=== PATIENT | male | born 1960 | race Hispanic/Latino ===

== ENCOUNTER 2016-03-23 17:39 | Emergency (ER) | payer OTHER ==
[~2016-03-23] VITALS: Ht 167.6 cm; Wt 90.9 kg
[~2016-03-23 17:39] MED LIST: IBUP800T28 PO; ONDA8TAB10 PO; OXYC1TAB24 PO
[2016-03-23 17:59] VITALS: BP 119/77; PULSE 46; RESP 10; O2SAT 96
[2016-03-23 18:30] VITALS: BP 112/71; PULSE 82; RESP 18; O2SAT 97
[2016-03-23] MEDS ORDERED: 0.9% Sodium Chloride 1,000 ML IV ONE (18:34)
--- NOTE | 2016-03-23 18:46 | ED.REPORT ---
HPI-Dizziness / Weakness Date of Service Mar 23, 2016 ED Provider: Dr. Albright Pt is a 55 year old male with a hx of vertigo, heart attack 15 years ago and borderline DM presenting to the ED complaining of sudden onset spinning dizziness 1 hour ago. Associated symptoms include nausea, vomiting, chills, fatigue, headache. Denies chest pain, SOB, ringing in the ears. Exacerbated by moving his head. He reports similar previous symptoms. Nursing Notes Stated Complaint: STOMACH PAIN, VOMITTING Chief Complaint: Male Abdominal Pain Nursing Notes Reviewed: Yes Allergies: Coded Allergies: No Known Allergies (Verified , 04/18/03) Scheduled Meclizine (Bonine) 25 Mg Tab.chew 25 MG PO TID Scheduled PRN Ibuprofen (Ibuprofen) 800 Mg Tablet 800 MG PO TID PRN PRN For Pain Ondansetron ODT (Ondansetron ODT) 8 Mg Tab.rapdis 8 MG PO Q4H PRN PRN For Nausea oxyCODONE-Acetaminophen 5-325 mg (oxyCODONE-Acetaminophen 5-325 mg) 1 Each Tablet 1-2 TAB PO TID PRN PRN For Pain General Time Seen by MD: 18:45 Chief Complaint Dizzy Hx Obtained From: Patient Arrived By: Walk-in Onset Occurred: 1 - 4 hours ago Symptom Duration: Since onset Location: : Head Quality: Painful Severity: Current: Mild Severity: Maximum: Moderate Recent Healthcare: No recent doctor visit, No recent hospitalization Similar Sx Previous: Yes Past Medical History Past Medical History Heart Disease Borderline DM Heart disease 15 years ago - seen at [facility] Reports: Hypertension Past Surgical History Cardiac Stents Smoking History Never Smoker Ambulatory Status Independent Review of Systems Constitutional: Reports: Chills, Fatigue Ears / Nose / Throat: Denies: Ear ringing bilateral Respiratory: Denies: Shortness of breath Cardiovascular: Denies: Chest pain GI: Reports: Nausea, Vomiting Neurologic: Reports: Dizziness, Headache Complete sys rev & neg: except as marked. Physical Exam Initial Vital Signs Vital Signs (First) Date Time Temp Pulse Resp B/P Pulse Ox O2 Delivery O2 Flow Rate FiO2 03/23/16 17:59 30.1 46 10 119/77 96 03/23/16 18:30 Room Air Initial VS: Reviewed Neck: Supple, Non-tender, Full range of motion Abdomen / GI: No distention Extremities: Vascular intact, Neuro intact, No swelling, No tenderness Skin: Warm, Dry, No cyanosis Psychiatric: Mood/affect normal, Behavior normal, Normal thought content General/Constitutional: Awake, Alert, No acute distress Head / Eyes: PERRL Nystagmus with fast to the right. No facial droop or asymmetry. Respiratory / Chest: No respiratory distress Cardiovascular: Heart rate NL, Regular rhythm, Heart sounds NL, No gallop, No murmurs, No rubs ENT: Airway patent, Tympanic membs NL Interpretation & Diagnostics Lab Results Interpretation Result Diagram: 03/23/16183103/23/161831 Test 03/23/16 18:32 White Blood Count 11.1th/mm3 (3.8-10.1) Red Blood Count 5.65mil/mm3 (4.40-5.80) Hemoglobin 16.8g/dL (13.8-17.2) Hematocrit 49.9% (41.0-50.0) Mean Corpuscular Volume 88.3fL (81-100) Mean Corpuscular Hemoglobin 29.7pg (27.0-35.0) Mean Corpuscular Hemoglobin Concent 33.7% (32.0-37.0) Red Cell Distribution Width 13.0% (12.3-15.4) Platelet Count 218bil/L (150-400) Neutrophils (%) (Auto) 72.5% (40-74) Lymphocytes (%) (Auto) 18.6% (14-46) Monocytes (%) (Auto) 7.9% (4-12) Eosinophils (%) (Auto) 0.5% (0-5) Basophils (%) (Auto) 0.1% (0-3) Sodium Level 139mEq/L (134-144) Potassium Level 4.1mEq/L (3.5-5.2) Chloride Level 97mEq/L (97-108) Carbon Dioxide Level 27mmol/L (18-29) Blood Urea Nitrogen 19mg/dL (6-24) Creatinine 1.02mg/dL (0.76-1.27) Estimat Glomerular Filtration Rate 81mL/min (>59) Glucose Level 209mg/dL (60-99) Calcium Level 9.4mg/dL (8.5-10.1) Magnesium Level 1.8mg/dL (1.6-2.6) Total Bilirubin 0.7mg/dL (0.0-1.2) Aspartate Amino Transf (AST/SGOT) 24U/L (0-50) Alanine Aminotransferase (ALT/SGPT) 21U/L (0-44) Alkaline Phosphatase 66U/L (25-150) Total Protein 7.6g/dL (6.4-8.4) Albumin 4.4g/dL (3.4-5.0) Lipase 26U/L (13-60) Hold Julien Top Tube Received (Received) ECG Interpretation ECG Interpretation: Old inferior infarct. Nonspecific intraventricular conduction delay. No acute ST segment changes. Rate of 57. Time: 18:12 Interpreted by: ED physician Normal ECG Interpretation: Normal sinus rhythm Re-Eval/Medical Decision Re-Evaluation/Progress : Time of Eval: 21:02 Patient Status: Condition improved Re-Evaluation/Progress Note: Dizziness is currently resolved. Discussed plan for discharge. Pt understands and agrees. Counseled Regarding: Diagnosis, Lab results, Need for follow-up, When/why to return to ED Patient Discharge & Departure Impression: Primary Impression: Vertigo Disposition: Home Discharge Condition All VS Reviewed: Yes Condition: Improved Patient Instructions: Benign Paroxysmal Positional Vertigo (ED) Additional Instructions: Emergency Department evaluation included review, examination, ECG labs. Episode of abrupt onset of severe vertigo is typical for BPPV. May use meclizine 25 mg every 8 hours as needed for vertigo episodes. Apley maneuver as shown on handout may help decrease the left length of time that you experience episodes of vertigo will cause dizziness when you perform them. Continue other previous home medications. Follow-up with primary care next week. Return emergency Department for severe disabling vertigo us and vomiting chest pain or difficulty with speech or weakness on one side of the body. Referrals: Ginger Harding DO (PCP) Micheal Attestation Portions of this note were transcribed by Archana Mcknight. I, Dr. Albright personally performed the history, physical exam and medical decision-making; I reviewed and confirmed the accuracy of the information in the transcribed note. Signed by : Micheal Theodore, 03/23/2015 and 2109. Ginger Harding Donald L MD Mar 23, 2016 18:46 ARCHANA MCKNIGHT Mar 23, 2016 18:58
[2016-03-23] MEDS: Ondansetron 2 mg/mL 2 mL Inj IVPUSH PRN ×2 (18:50→19:43)
[2016-03-23 18:52] LABS: BASOPHILS % (AUTO) 0.1 % (0-3); EOSINOPHILS % (AUTO) 0.5 % (0-5); MONOCYTES % (AUTO) 7.9 % (4-12); Mean Corpuscular Hemoglobin 29.7 pg (27.0-35.0); Mean Corpuscular Volume 88.3 fL (81-100); NEUTROPHILS % (AUTO) 72.5 % (40-74); Platelet Count 218 bil/L (150-400)
[2016-03-23 19:14] LABS: Magnesium 1.8 mg/dL (1.6-2.6)
[2016-03-23] MEDS ORDERED: MECL-114 PO (21:07)
[2016-03-23 21:24] VITALS: BP 139/75; PULSE 78; RESP 18; O2SAT 98
== END 2016-03-23 21:26 | disposition home or self-care (01) ==
LOC: SED 17:39
DX: R42 Dizziness and giddiness (principal); R11.2 Nausea with vomiting, unspecified; R68.83 Chills (without fever); R53.83 Other fatigue; R51 Headache; I10 Essential (primary) hypertension; I25.2 Old myocardial infarction; R73.09 Other abnormal glucose; Z95.818 Presence of other cardiac implants and grafts
CPT/HCPCS: 36415; 80053; 83690; 83735; 85025; 93005; 96361; 96374; 96376; 99285; J2405; J7030

== ENCOUNTER 2016-09-01 05:30 | Day surgery (SDC) | payer OTHER ==
[2016-09-01] VITALS (11 sets, daily range): BP systolic 110–142; BP diastolic 69–92; PULSE 49–66; RESP 9–18; O2SAT 92–100
[~2016-09-01] VITALS: Ht 165.1 cm; Wt 94.3 kg
[~2016-09-01 05:30] MED LIST changes: +AMLO5TAB2 PO; +ATOR20TA PO; +HYG25 PO; -IBUP800T28 PO; +LOSA25TA21 PO; +Lactated Ringer's 1,000 ML IV ONE; +METO25TA99 PO; -ONDA8TAB10 PO; -OXYC1TAB24 PO; +aspirin PO
[2016-09-01] MEDS ORDERED: Dexamethasone 4 mg/mL Inj ONE (05:31)
[2016-09-01] MEDS ORDERED: MeTOProlol 1 mg/mL 5 mL Inj ONE (05:31)
[2016-09-01] MEDS ORDERED: Propofol 10,000 mCg/mL 20 mL Inj ONE (05:31)
[2016-09-01] MEDS ORDERED: Ondansetron 2 mg/mL 2 mL Inj ONE (05:31)
[2016-09-01] MEDS ORDERED: fentaNYL-PF 50 mCg/mL 2 mL Inj ONE (05:31)
[2016-09-01] MEDS ORDERED: CeFAZolin 2 Gm/50 mL D5W IV Premix IV ONE (06:00)
[2016-09-01] MEDS ORDERED: Lactated Ringer's 1,000 ML IV SCH ×2 (06:00→07:31)
--- NOTE | 2016-09-01 07:15 | PCM.HPANE ---
Patient Data Surgeon Admitting Provider: Attending Provider:Ryan Valles MD Primary Care Physician:Ginger Harding DO Other Provider:Varsha Vazquezingham Anesthesia Reason for Visit Right Knee Loose Body Ht/WT & BMI Height (Feet): 5 Height (Inches): 5 Weight (Kilograms): 94.3 Body Mass Index 34.00 Allergies Coded Allergies: No Known Allergies (Verified , 04/18/03) Past Anesthesia History Anesthesia History: Denies:: Anesthesia Reactions Diabetes History Hx Diabetes?: No Type of Diabetes: Diet Controlled MRSA MRSA: No Medications Blood Thinner: Aspirin Hypertension Medication: Yes Home Meds Incl Beta Tee: Yes Date Beta Tee Taken: Aug 31, 2016 Time Beta Tee Taken: 0800 Reported Medications Metoprolol Succinate ER 25 Mg Tab.er.24h25 Mg PO DAILY Ref 0 08/25/16 Losartan Potassium 25 Mg Bcgzqe65 Mg PO DAILY 08/25/16 Chlorthalidone 25 Mg Uiimeg75 Mg PO DAILY #30 TABLET 08/25/16 Atorvastatin (Lipitor)20 Mg Kuahdd09 Mg PO DAILY Ref 0 08/25/16 [aspirin] No Conflict Ahdhe247 Mg PO DAILY 08/25/16 Amlodipine 5 Mg Tablet5 Mg PO DAILY Ref 0 08/25/16 Discontinued Scripts Meclizine (Bonine)25 Mg Tab.chew25 Mg PO TID DIZZINESS #20 TABLET Prov:Alvino Albright MD 03/23/16 Ondansetron ODT 8 Mg Tab.rapdis8 Mg PO Q4H PRN For Nausea #10 TABLET Prov:Tomasz Maddox MD 11/14/15 oxyCODONE-Acetaminophen 5-325 mg 1 Each Tablet1-2 Tab PO TID PRN For Pain #20 TABLET Ref 0 Prov:Tomasz Maddox MD 11/14/15 Ibuprofen 800 Mg Pbulig570 Mg PO TID PRN For Pain #30 TABLET Ref 0 Prov:Tomasz Maddox MD 11/14/15 Last Time Dose Received No meds taken today. All meds taken in am normally History History of ENT Problems?: No HEENT History: Denies:: Abnormal Airway Cataracts Difficult Intubation Dysphagia Glaucoma Hearing Problem Sinus Problem TMJ Denture Type: None Teeth Condition: Within Normal Limits Hx of Heart Problems?: Yes Cardiovascular History: Positive for:: Cardiac Surgery (hx of cardiac cath stent- 2000) Hypertension Denies:: Congestive Heart Failure Edema Heart Murmur Irregular Heartbeat Pacemaker Thrombophlebitis Other History/Comments Greater than 4 mets. No CP Hx of Respiratory Problem?: Yes Respiratory History: Positive for:: Use of C-PAP Machine Denies:: Oxygen Administration Tuberculosis Hx Neurologic Problems?: No Neurological History: Denies:: CVA Multiple Sclerosis Parkinson's Disease Seizures Hx of GI Problems?: Yes Hx of Problems?: No Male Hx: Denies:: Scrotal Mass Skin History: Denies:: History Skin Disorders? Hx Musculoskeletal Problems?: Yes Musculoskeletal History: Positive for:: Musculoskeletal Trauma (right knee loose body current admission problem) Psycho Social History: Denies:: Hx Depression Hx Surgeries?: Yes (appy,) Hx Any Other Health Problems?: Yes Other History: Positive for:: Hospitalization Denies:: Cancer Thyroid Disease History Blood Transfusions: Positive for:: Blood Transfusions Denies:: Blood Transfuse Reaction Hx Diabetes: No Hx Alcohol Use: NoHx Substance Use: No Smoking Status: Never Smoker Have You Smoked inLast 12 mo: No Stop/Bang S-Snoring: Do You Snore Loudly: No T-Tired: feel tired, fatigued: No O-Obsered: Observed not breath: No P-Blood Pressure: treated: Yes B- Body Mass Index > 35 kg/m2: No A- Age over 50: Yes N- Neck Large Circumference: No G- Gender Male: Yes CHALINO Total Score: 3 Risk Assessment Category Category 1A: Patient has history of documented sleep apnea, and HAS NOT received any narcotic, sedative or anesthesia administration during this stay. Category 1B: Patient has history of documented sleep apnea, and HAS received any narcotic , sedative or anesthesia administration during this stay Category 2: Patient has SUSPECTED Obstructive Sleep Apnea, and HAS received any narcotic , sedative or anesthesia administration during this stay. Category 3: Patient has SUSPECTED Obstructive Sleep Apnea and HAS NOT received narcotic, sedative or anesthesia administration during this stay. Category 4: Outpatient in Procedural Areas with known sleep apnea or who screen positive for High Risk via the STOP/BANG questionnaire. Exam Exam Vital Signs Vital Signs Date Time Temp Pulse Resp B/P Pulse Ox O2 Delivery O2 Flow Rate FiO2 09/01/16 05:52 35.7 58 17 135/92 97 Room Air General Appearance: Alert, Oriented X3 HEENT/AIRWAY: MP 2, MP 3, Neck Movement (FROM) Lungs: Clear to Auscultation, Clear to Percussion Heart: Exam Unremarkable, Regular Rate/Rhythm Meds/Labs/Diagnostics Admission Meds Current Medications Lactated Ringer's (Lr) 1,000 ml @ 120 mls/hr Q8H20M ONCE IV Last administered on 09/01/16t 05:40; Start 09/01/16 at 05:00; Stop 09/01/16 at 13:19 Plan Impression Patient chart reviewed, patient interviewed and anesthestic plan with risks, benefits, and alternatives discussed, and informed consent obtained. ASA Physical Status: ASA2 Mod Systemic Disease Anesthetic Plan: GA Bene/Risks/Altern/Consents: Yes HP Complete Prior to Induction: Yes Quinton Noonan MD Sep 01, 2016 07:09
[2016-09-01] MEDS ORDERED: Lactated Ringer's 500 ML IV PRN (07:31)
[2016-09-01] MEDS ORDERED: EPHEDrine Sulfate 50 mg/mL Inj IVPUSH PRN (07:35)
[2016-09-01] MEDS ORDERED: Labetalol 5 mg/mL 4 mL Inj IV PRN (07:35)
[2016-09-01] MEDS ORDERED: Ondansetron 2 mg/mL 2 mL Inj IVPUSH PRN (07:35)
[2016-09-01] MEDS ORDERED: Phenylephrine 10,000 mCg/mL Inj IVPUSH PRN (07:35)
[2016-09-01] MEDS ORDERED: MetoCLOpramide 5 mg/mL 2 mL Inj IVPUSH PRN (07:35)
[2016-09-01] MEDS ORDERED: Atropine 0.4 mg/mL Inj IVPUSH PRN (07:35)
[2016-09-01] MEDS ORDERED: Bupivacaine-MPF 0.5% W/EPI 30 mL Inj INFILTRATE ONE (07:49)
[2016-09-01] MEDS ORDERED: Dexamethasone 4 mg/mL Inj INTRARTICU ONE (07:50)
[2016-09-01] MEDS ORDERED: HYDROcodone-APAP 5-325 mg Tablet PO PRN (08:25)
--- NOTE | 2016-09-01 08:48 | PCM.ANEP1 ---
Post Anesthesia PACU Phase 1 Assessment Vital Signs Vital Signs Date Time Temp Pulse Resp B/P Pulse Ox O2 Delivery O2 Flow Rate FiO2 09/01/16 08:36 36.0 53 16 131/69 96 Room Air 09/01/16 08:30 51 14 110/76 97 Room Air 09/01/16 08:25 65 18 123/78 97 Room Air 09/01/16 08:21 35.8 57 14 142/80 100 Simple Mask 8 09/01/16 05:52 35.7 58 17 135/92 97 Room Air Anesthetic Administered: GA Level of Alertness: Awake, talking RAAZ's with Equal Strength: Yes Pain: No Nausea or Vomiting: No CV Function & Hydration Stable: Yes Airway Device: Oxygen Delivery: Simple Mask Lungs: Clear to Auscultation, Clear to Percussion PACU Phase 2 Assessment Complications: No Follow up Care: No Patient Instructions Provided: N/A Quinton Noonan MD Sep 01, 2016 08:48
[2016-09-01] MEDS: HYDROmorphone 1 mg/mL Inj IVPUSH PRN ×2 (08:50→08:57)
[2016-09-01] MEDS: fentaNYL-PF 50 mCg/mL 2 mL Inj IVPUSH PRN ×2 (08:59→09:02)
--- NOTE | 2016-09-01 21:18 | OP ---
[address] [address] OPERATIVE REPORT PATIENT: ALICIA CAI : 1960 MR#: [id number] ADMIT: 09/01/2016 JOB ID: [id number] DATE OF SURGERY: 09/01/2016 PREOPERATIVE DIAGNOSIS(ES): Internal derangement, with loose bodies, right knee. POSTOPERATIVE DIAGNOSIS(ES): Internal derangement, with loose bodies, right knee. SURGEON: Ryan Valles M.D. INDICATIONS: This gentleman has had significant disabling mechanical symptoms with MRI demonstrating multiple abnormalities within his knee. In addition, MRI demonstrates several loose bodies. He elects to proceed with arthroscopy with repair as indicated, understanding and accepting the limitations of the potential risks and complications. FINDINGS AT SURGERY: Revealed minimal patellofemoral arthritis. Three loose bodies were encountered in the knee. A very large one in the lateral gutter, two in the suprapatellar pouch on the medial side. Also noted to have a lateral meniscal tear with moderate chondromalacia in the lateral femoral condyle. PROCEDURE IN DETAIL: Following the diagnostic arthroscopy, attention was turned to loose body removal. Three loose bodies were removed with graspers under direct visualization. The lateral loose body which measured 3 cm in length was removed through a mini arthrotomy on that side. Following this, the medial compartment was noted to be in excellent condition. Intact ACL. Lateral compartment revealed a tear of the lateral meniscus which was treated with partial lateral meniscectomy performed with a meniscal resector blade. The knee was irrigated with a large quantity of sterile irrigant. Following this, all foreign material was removed. Portals were closed as well as a minimal surgical extension with nylon suture. The patient was taken to recovery room in stable condition. He tolerated the procedure well. There were no complications.
== END 2016-09-01 23:59 | disposition home or self-care (01) ==
LOC: SAS 05:30
PROVIDERS: ATTEND Orthopaedic Surgery
DX: M23.41 Loose body in knee, right knee (principal); M23.200 Derangement of unspecified lateral meniscus due to old tear or injury, right knee; I10 Essential (primary) hypertension; I25.10 Atherosclerotic heart disease of native coronary artery without angina pectoris; E78.5 Hyperlipidemia, unspecified; G47.33 Obstructive sleep apnea (adult) (pediatric); V89.2XXS Person injured in unspecified motor-vehicle accident, traffic, sequela; Y92.9 Unspecified place or not applicable; I25.2 Old myocardial infarction; Z95.5 Presence of coronary angioplasty implant and graft; Z79.82 Long term (current) use of aspirin; Z53.33 Arthroscopic surgical procedure converted to open procedure
CPT/HCPCS: 27331; 29881; J0690; J1100; J1170; J2405; J3010; J7120